=== PATIENT | female | born 1960 | race American Indian/Alaskan Native ===

== ENCOUNTER 2017-02-23 16:00 | Emergency (ER) | payer SELFPAY ==
[2017-02-23 18:00] LABS: Basophils % (Auto) 0.8 % (0.0-1.8); Eosinophils % (Auto) 3.4 % (0.0-4.3); Hematocrit 37.4 % (30.3-42.9); Hemoglobin 12.1 gm/dl (10.1-14.3); Mean Corpuscular HGB Conc 32 % (30-34); Mean Corpuscular Hemoglobin 29 pg (28-32); Mean Corpuscular Volume 91 fl (79-97); Platelet Count 282 K/mm3 (140-440); Red Blood Count 4.12 M/mm3 (3.65-5.03); Red Cell Distribution Width 14.3 % (13.2-15.2); White Blood Count 5.6 K/mm3 (4.5-11.0)
[2017-02-23 18:09] LABS: INR 1.02 (0.87-1.13); Partial Thromboplastin Time 29.9 Sec. (24.2-36.6)
[2017-02-23 18:19] LABS: Anion Gap 19 mmol/L; Blood Urea Nitrogen 12 mg/dL (7-17); Calcium 9.1 mg/dL (8.4-10.2); Carbon Dioxide 22 mmol/L (22-30); Chloride 102.4 mmol/L (98-107); Glucose 99 mg/dL (65-100); Potassium 3.3 mmol/L (3.6-5.0); Sodium 140 mmol/L (137-145)
[2017-02-23 23:47] VITALS: BP 142/80
[2017-02-24] MEDS ORDERED: LASIX PO ONE (01:16)
[2017-02-24] MEDS ORDERED: TORADOL IM ONE (01:16)
[2017-02-24] MEDS ORDERED: LOVENOX SUB-Q ONE (01:33)
--- NOTE | 2017-02-24 01:43 | Emergency Department Report ---
HPI - General Chief Complaint: Extremity Problem,Nontraumatic Time Seen by Provider: 02/24/17 00:16 - HPI HPI: The patient is a 56-year-old female presents for evaluation of left leg pain. The patient reports progressive left leg pain and swelling for the past 3 weeks , worse over the past one day, 5/10 in severity, throbbing in quality, exacerbated with weightbearing or ambulation. 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 The patient denies trauma to the left leg leg, fever , chills, night sweats, paresthesias, motor deficit, chest pain, dyspnea, abdominal pain or distention. ED Past Medical Hx - Past Medical History Additional medical history: HIATAL HERNIA - Surgical History Additional Surgical History: HYSTERECTOMY. TUBAL LIGATION. HEMORRHOIDECTOMY - Social History Smoking Status: Never Smoker Substance Use Type: Alcohol - Medications Home Medications: Home Medications Medication Instructions Recorded Confirmed Last Taken Type Cyclobenzaprine HCl [Flexeril 5mg] 5 mg PO Q6HR #15 tablet 03/17/15 02/24/17 Unknown Rx Tramadol HCl [traMADol] 50 mg PO Q8HR #20 tablet 03/17/15 02/24/17 Unknown Rx Acetaminophen/Codeine [Tylenol #3] 1 tab PO Q6H PRN #10 tab 02/24/17 Unknown Rx ED Review of Systems ROS: Stated complaint: LT LEG PAIN Other details as noted in HPI Constitutional: denies: fever ENT: denies: throat or neck pain Respiratory: denies: cough, shortness of breath Cardiovascular: denies: chest pain Endocrine: denies unexplained weight loss or gain Gastrointestinal: denies: abdominal pain, nausea Genitourinary: denies: dysuria Musculoskeletal: reports leg pain and leg swelling Skin: denies: rash Neurological: denies: headache Hematological/Lymphatic: denies: easy bleeding or easy bruising Psych: denies sadness or hopelessness Physical Exam - Physical Exam Vital Signs: Vital Signs 02/23/17 23:47 Pulse Rate 74 Respiratory 16 Rate Blood Pressure 142/80 [Left] O2 Sat by Pulse 95 Oximetry Physical Exam: General: well-nourished, well-developed, no acute distress Head: Normocephalic, atraumatic Eyes: normal sclera ENT: Mucous membranes are pink and moist Neck: trachea midline, neck supple, No neck stiffness, no cervical adenopathy Respiratory: Breath sounds equal bilaterally, no wheezing, rales, or rhonchi Cardio: S1 and S2 present, no murmurs, rubs, gallops, capillary refill is brisk Abdomen: Normoactive bowel sounds, soft abdomen, no tenderness Musc: Left lower extremity is swollen, left calf Muscle warm to touch, positive calf muscle tenderness to compression present, 1+ pitting edema to the left lower extremity, leg compartments are soft and pliable, no signs compartments syndrome Skin: No rash Neuro: no facial drooping, normal speech Psych: Normal affect ED Course Vital Signs 02/23/17 23:47 Pulse Rate 74 Respiratory 16 Rate Blood Pressure 142/80 [Left] O2 Sat by Pulse 95 Oximetry ED Medical Decision Making - Lab Data Result diagrams: 02/23/17 17:43 02/23/17 17:43 - Medical Decision Making The patient was seen and examined by myself. The patient is placed on a communications project lead and continuous pulse ox. On initial evaluation, the patient was found to be in no distress. Evaluation orders were placed. The patient is given IM dose of toradol for her pain and a tab of lasix. Lab results revealed elevated d-dimer and otherwise unrevealing. As patient has elevated d-dimer and exam findings probable for DVT, the patient will be treated prophylactically and scheduled for Doppler ultrasound of the left lower extremity in the a.m. The patient was reevaluated and reported that their symptoms were markedly improved. The patient is stable for discharge with outpatient follow-up. The patient is given follow-up and return instructions. The patient expressed understanding and agreed with the plan. The patient is discharged in stable condition. Critical care attestation.: If time is entered above; I have spent that time in minutes in the direct care of this critically ill patient, excluding procedure time. ED Disposition Clinical Impression: Leg pain, left, Pain and swelling of left lower extremity Left leg DVT Qualifiers: Affected thrombotic vein of extremity: unspecified vein of extremity Chronicity : acute Qualified Code(s): I82.402 - Acute embolism and thrombosis of unspecified deep veins of left lower extremity Disposition: DISCHARGED TO HOME OR SELFCARE Is pt being admited?: No Does the pt Need Aspirin: No Condition: Stable Instructions: Deep Venous Thrombosis (ED), Musculoskeletal Pain (ED) Additional Instructions: Make sure to present to the vascular lab here at [facility] first thing in the morning to receive US of your left leg, in order to investigate for suspected blood clot. Make sure to return to the ED for definitive treatment if your US in the morning is positive for a blood clot. Prescriptions: Acetaminophen/Codeine [Tylenol #3] 1 tab PO Q6H PRN #10 tab PRN Reason: Pain Referrals: PRIMARY CARE, [Primary Care Provider] - 3-5 Days Time of Disposition: 01:37
== END 2017-02-24 02:24 | disposition home or self-care (01) ==
LOC: ED 16:00
DX: I82.402 Acute embolism and thrombosis of unspecified deep veins of left lower extremity (principal); M79.89 Other specified soft tissue disorders; M79.605 Pain in left leg
CPT/HCPCS: 36415; 80048; 85025; 85379; 85610; 85730; 96372; 99284; J1650; J1885

== ENCOUNTER 2017-02-24 09:24 | Outpatient (CLI) | payer SELFPAY ==
--- NOTE | 2017-02-25 09:42 | Vascular Lab Report ---
Left Lower Extremity Venous Duplex Study: Reason for Exam: Pain and swelling of the left lower extremity. Comments on the Right: A limited duplex study was done of the proximal veins of the right lower extremity. All veins visualized are freely compressible without evidence of internal echogenicity. Flow is spontaneous and phasic throughout. No evidence of acute or chronic thrombus is seen in any of the vessels visualized. Comments on the Left: All veins visualized are freely compressible without evidence of internal echogenicity. Flow is spontaneous and phasic throughout. No evidence of acute or chronic thrombus is seen in any of the vessels visualized. There are soft tissue change in the left knee area most compatible with a Zhao's cyst, possibly ruptured. Impression: No evidence of acute or chronic deep venous thrombosis in the left lower extremity.
== END 2017-02-24 09:25 | disposition home or self-care (01) ==
LOC: VAS 09:24
PROVIDERS: ATTEND Emergency Medicine
DX: M79.605 Pain in left leg (principal); M79.89 Other specified soft tissue disorders

== ENCOUNTER 2017-09-24 05:49 | Emergency (ER) | payer OTHER ==
--- NOTE | 2017-09-24 07:00 | XRay Report ---
FINAL REPORT EXAM: XR CHEST ROUTINE 2V HISTORY: Cough. TECHNIQUE: Frontal and lateral radiographs of the chest were obtained. No prior studies are available for comparison. FINDINGS: The cardiac silhouette and mediastinum are within normal limits. The lungs are clear bilaterally, without focal infiltrate or effusion. There is no pneumothorax. No significant osseous abnormalities are identified. IMPRESSION: No active disease seen in the chest.
[2017-09-24 09:16] LABS: Basophils % (Auto) 0.5 % (0.0-1.8); Eosinophils % (Auto) 0.1 % (0.0-4.3); Hematocrit 39.8 % (30.3-42.9); Hemoglobin 13.1 gm/dl (10.1-14.3); Lymphocytes # (Auto) 0.6 K/mm3 (1.2-5.4); Lymphocytes % (Auto) 10.5 % (13.4-35.0); Mean Corpuscular HGB Conc 33 % (30-34); Mean Corpuscular Hemoglobin 31 pg (28-32); Mean Corpuscular Volume 93 fl (79-97); Monocytes # (Auto) 0.3 K/mm3 (0.0-0.8); Monocytes % (Auto) 5.9 % (0.0-7.3); Platelet Count 231 K/mm3 (140-440); Red Blood Count 4.28 M/mm3 (3.65-5.03); Red Cell Distribution Width 14.5 % (13.2-15.2)
[2017-09-24 09:30] LABS: Alanine Aminotransferase 59 units/L (7-56); Albumin 4.4 g/dL (3.9-5); BUN/Creatinine Ratio 12; Blood Urea Nitrogen 11 mg/dL (7-17); Calcium 9.5 mg/dL (8.4-10.2); Hemolysis Index 9
[2017-09-24] MEDS ORDERED: NACL 0.9% 1000 ML 1,000 ML IV ONE (14:01)
[2017-09-24] MEDS ORDERED: DUONEB *Not for PRN Use IH ONE (14:01)
[2017-09-24] MEDS ORDERED: TESSALON PERLES PO ONE (14:02)
--- NOTE | 2017-09-24 14:08 | Emergency Department Report ---
ED General Adult HPI - General Chief complaint: Upper Respiratory Infection Stated complaint: FLU SX Time Seen by Provider: 09/24/17 13:16 Source: patient Mode of arrival: Ambulatory Limitations: No Limitations - History of Present Illness Initial comments: PT c/o being sick since Wednesday night. PT states she has ear pain, facial pain, cough, sore throat, body aches and chest pain with coughing. PT states she has been nauseated. PT states symptoms improved last night after drinking vinegar. PT states she vomited this am. Pt states she has been taking Tylenol for her symptoms and she gets mild relief. Last dose was last night. Pt states she recently went to a work meeting and "everyone was sick" MD Complaint: Flu symptoms Onset/Timin -: Gradual Location: head, mouth, chest, back Severity scale (0 -10): 8 Quality: aching Consistency: constant Improves with: medication Worsens with: other (coughing ) Associated Symptoms: fever/chills, headaches, loss of appetite, nausea/ vomiting. denies: shortness of breath Treatments Prior to Arrival: none - Related Data Previous Rx's Medication Instructions Recorded Last Taken Type Benzonatate [Tessalon Perles] 100 mg PO Q8HR PRN #12 capsule 09/24/17 Unknown Rx Ibuprofen [Motrin] 600 mg PO Q8H PRN #20 tablet 09/24/17 Unknown Rx Ondansetron [Zofran Odt] 4 mg PO Q8HR PRN #10 tab.rapdis 09/24/17 Unknown Rx Sulfamethoxazole/Trimethoprim 1 each PO BID #14 tablet 09/24/17 Unknown Rx [Bactrim DS TAB] Allergies Allergy/AdvReac Type Severity Reaction Status Date / Time Penicillins Allergy Anaphylaxis Verified 03/17/15 16:58 ED Review of Systems ROS: Stated complaint: FLU SX Other details as noted in HPI Comment: All other systems reviewed and negative Constitutional: chills, fever, malaise ENT: ear pain, throat pain, congestion Respiratory: cough. denies: shortness of breath, SOB with exertion, SOB at rest Cardiovascular: chest pain (hurts to cough). denies: palpitations, dyspnea on exertion, orthopnea, edema, syncope Endocrine: increased urine Gastrointestinal: nausea, vomiting. denies: abdominal pain Genitourinary: frequency, other (pt states her urine has been darker than normal and she has noticed an odor to her urine). denies: dysuria Musculoskeletal: myalgia Neurological: headache. denies: weakness, confusion, abnormal gait, vertigo ED Past Medical Hx - Past Medical History Previous Medical History?: No Hx Hypertension: No Hx CVA: No Hx Heart Attack/AMI: No Hx Congestive Heart Failure: No Hx Diabetes: No Additional medical history: HIATAL HERNIA - Surgical History Past Surgical History?: Yes Additional Surgical History: HYSTERECTOMY. TUBAL LIGATION. HEMORRHOIDECTOMY - Social History Smoking Status: Never Smoker Substance Use Type: None - Medications Home Medications: Home Medications Medication Instructions Recorded Confirmed Last Taken Type Benzonatate [Tessalon Perles] 100 mg PO Q8HR PRN #12 capsule 09/24/17 Unknown Rx Ibuprofen [Motrin] 600 mg PO Q8H PRN #20 tablet 09/24/17 Unknown Rx Ondansetron [Zofran Odt] 4 mg PO Q8HR PRN #10 tab.rapdis 09/24/17 Unknown Rx Sulfamethoxazole/Trimethoprim 1 each PO BID #14 tablet 09/24/17 Unknown Rx [Bactrim DS TAB] ED Physical Exam - General Limitations: No Limitations General appearance: alert, in no apparent distress - Head Head exam: Present: atraumatic, normocephalic, normal inspection - Eye Eye exam: Present: normal appearance, PERRL, EOMI. Absent: conjunctival injection, nystagmus - ENT ENT exam: Present: normal exam, normal orophraynx, mucous membranes moist, TM's normal bilaterally, normal external ear exam - Neck Neck exam: Present: normal inspection, full ROM. Absent: lymphadenopathy - Respiratory Respiratory exam: Present: respiratory distress, decreased breath sounds. Absent: normal lung sounds bilaterally - Cardiovascular Cardiovascular Exam: Present: regular rate, normal rhythm, normal heart sounds - GI/Abdominal GI/Abdominal exam: Present: soft, normal bowel sounds. Absent: tenderness - Extremities Exam Extremities exam: Present: normal inspection, full ROM - Back Exam Back exam: Present: normal inspection, full ROM. Absent: tenderness, CVA tenderness (R), CVA tenderness (L) - Neurological Exam Neurological exam: Present: alert, oriented X3 - Psychiatric Psychiatric exam: Present: normal affect, normal mood - Skin Skin exam: Present: warm, normal color ED Course Vital Signs 09/24/17 09/24/17 09/24/17 05:56 13:32 16:02 Temperature 100.5 F H 98.0 F Pulse Rate 110 H 79 Pulse Rate [ 105 H Bilateral Upper Lobe] Respiratory 16 Rate Respiratory 18 Rate [Bilateral Upper Lobe] Blood Pressure 134/87 Blood Pressure 135/67 [Left] O2 Sat by Pulse 99 100 Oximetry 09/24/17 09/24/17 16:08 16:22 Temperature 98.8 F Pulse Rate 85 Pulse Rate [ 102 H Bilateral Upper Lobe] Respiratory 20 Rate Respiratory 20 Rate [Bilateral Upper Lobe] Blood Pressure Blood Pressure 115/66 [Left] O2 Sat by Pulse 94 Oximetry - Reevaluation(s) Reevaluation #1: 09/24/17 14:13 PT aware of plan of care. Reevaluation #2: 09/24/17 17:17 PT states she is feeling better. PT aware of results. PT's chest pain is described as discomfort coughing, negative troponin and EKGis NSR. PT is stable to outpt follow up. PT aware she may need further testing that can be ordered by PCP or cardio. Pt has no questions at this time. - Pulse Oximetry Interpretation Digit-Finger Initial Pulse Oximetry Readin Actions Taken: none ED Medical Decision Making - Lab Data Result diagrams: 09/24/17 08:52 09/24/17 08:52 Laboratory Results - last 24 hr 09/24/17 09/24/17 09/24/17 08:52 08:52 14:10 WBC 5.4 RBC 4.28 Hgb 13.1 Hct 39.8 MCV 93 MCH 31 MCHC 33 RDW 14.5 Plt Count 231 Lymph % (Auto) 10.5 L Phillips % (Auto) 5.9 Eos % (Auto) 0.1 Baso % (Auto) 0.5 Lymph # 0.6 L Phillips # 0.3 Eos # 0.0 Baso # 0.0 Seg Neutrophils % 83.0 H Seg Neutrophils # 4.5 Sodium 138 Potassium 4.4 Chloride 97.2 L Carbon Dioxide 22 Anion Gap 23 BUN 11 Creatinine 0.9 Estimated GFR > 60 BUN/Creatinine Ratio 12 Glucose 144 H Calcium 9.5 Total Bilirubin 0.20 AST 53 H ALT 59 H Alkaline Phosphatase 101 Total Creatine Kinase 182 H Troponin T < 0.010 Total Protein 8.3 H Albumin 4.4 Albumin/Globulin Ratio 1.1 Lipase 18 Urine Color Urine Turbidity Urine pH Ur Specific [place] Urine Protein Urine Glucose (UA) Urine Ketones Urine Blood Urine Nitrite Urine Bilirubin Urine Urobilinogen Ur Leukocyte Esterase Urine WBC (Auto) Urine RBC (Auto) Urine Bacteria (Auto) Urine Mucus 09/24/17 14:30 WBC RBC Hgb Hct MCV MCH MCHC RDW Plt Count Lymph % (Auto) Phillips % (Auto) Eos % (Auto) Baso % (Auto) Lymph # Phillips # Eos # Baso # Seg Neutrophils % Seg Neutrophils # Sodium Potassium Chloride Carbon Dioxide Anion Gap BUN Creatinine Estimated GFR BUN/Creatinine Ratio Glucose Calcium Total Bilirubin AST ALT Alkaline Phosphatase Total Creatine Kinase Troponin T Total Protein Albumin Albumin/Globulin Ratio Lipase Urine Color Yellow Urine Turbidity Clear Urine pH 5.0 Ur Specific [place] 1.012 Urine Protein <15 mg/dl Urine Glucose (UA) Neg Urine Ketones Neg Urine Blood Mod Urine Nitrite Neg Urine Bilirubin Neg Urine Urobilinogen < 2.0 Ur Leukocyte Esterase Neg Urine WBC (Auto) 2.0 Urine RBC (Auto) 3.0 Urine Bacteria (Auto) 1+ Urine Mucus 1+ - EKG Data -: EKG Interpreted by [facility] EKG shows normal: sinus rhythm Rate: normal (83) - EKG Data When compared to previous EKG there are: no significant change (previous EKG reviewed in [facility] dated 11-19-15) Interpretation: no acute changes - Radiology Data Radiology results: report reviewed CXR - NAP - Medical Decision Making PT with two days of c/c/c and urinary frequency. UA suggestive of mild UTI. PT reports pain with coughing, denies worsening of pain with inspiration. Pt's heart score is 2. She is safe for outpt follow up. - Differential Diagnosis pna, bronchitis, uti, costocondritis, dehyration Critical Care Time: No Critical care attestation.: If time is entered above; I have spent that time in minutes in the direct care of this critically ill patient, excluding procedure time. ED Disposition Clinical Impression: Viral URI with cough, Elevated LFTs UTI (urinary tract infection) Qualifiers: Urinary tract infection type: acute cystitis Hematuria presence: with hematuria Qualified Code(s): N30.01 - Acute cystitis with hematuria Disposition: TO HOME OR SELFCARE Is pt being admited?: No Does the pt Need Aspirin: No Condition: Stable Instructions: Urinary Tract Infection in Women (ED), Cold Symptoms (ED) Additional Instructions: Rest Increase fluids avoid Tylenol containing products Follow up with PCP in 3-5 days return to ED if worsening symptoms or concerns Prescriptions: Benzonatate [Tessalon Perles] 100 mg PO Q8HR PRN #12 capsule PRN Reason: Cough Ibuprofen [Motrin] 600 mg PO Q8H PRN #20 tablet PRN Reason: Pain Ondansetron [Zofran Odt] 4 mg PO Q8HR PRN #10 tab.rapdis PRN Reason: Nausea Sulfamethoxazole/Trimethoprim [Bactrim DS TAB] 1 each PO BID #14 tablet Referrals: PRIMARY CAREMD [Primary Care Provider] - 3-5 Days TEDDY HOUSER MD [Staff Physician] - 3-5 Days Forms: Work/School Release Form(ED) Time of Disposition: 17:25
[2017-09-24] MEDS ORDERED: MOTRIN PO ONE (14:10)
[2017-09-24] MEDS ORDERED: ZOFRAN IV ONE (14:10)
[2017-09-24 14:46] LABS: Lipase 18 units/L (13-60)
[2017-09-24 15:02] LABS: Bacteria,Urine 1+ /HPF (Negative); Bilirubin,Urine NEG (Negative); Blood,Urine MOD (Negative); Color,Urine Yellow (Yellow); Mucus,Urine 1+ /HPF; Nitrite,Urine NEG (Negative); Protein,Urine <15 mg/dL mg/dL (Negative); Urobilinogen,Urine < 2.0 mg/dL (<2.0)
[2017-09-24 16:23] VITALS: BP 115/66
== END 2017-09-24 17:41 | disposition home or self-care (01) ==
LOC: ED 05:49
DX: J02.9 Acute pharyngitis, unspecified (principal); J06.9 Acute upper respiratory infection, unspecified; N30.01 Acute cystitis with hematuria; R94.5 Abnormal results of liver function studies; Z88.0 Allergy status to penicillin
CPT/HCPCS: 36415; 71020; 80053; 81001; 82550; 83690; 84484; 85025; 87086; 87400; 93005; 93010; 94640; 96361; 96374; 99284; J2405; J7030

== ENCOUNTER 2019-08-28 09:40 | Emergency (ER) | payer SELFPAY ==
[2019-08-28 09:51] VITALS: BP 164/85
[2019-08-28] MEDS ORDERED: dexAMETHasone 20 MG/5 ML VIAL IV ONE (11:14)
--- NOTE | 2019-08-28 11:19 | Emergency Department Report ---
- General Chief complaint: Urogenital-Female Stated complaint: REACTION FROM MEDS Time Seen by Provider: 08/28/19 11:13 Source: patient Mode of arrival: Ambulatory Limitations: No Limitations - History of Present Illness Initial comments: 58-year-old female presents to the emergency room complaining of vaginal swelling, mild tongue swelling and mild lip swelling since this morning. Patient states that she had seen her FEED PREPARATION OPERATOR provider and they had given her Diflucan which she had reported to them that she had an allergic reaction. Patient took the medication and woke up this morning with swelling and allergic reaction. Patient is seen by [facility]ED PREPARATION OPERATOR in [place]. She states that she has had this reaction 3 times in the last 12 years. Patient states she usually has to come in and get a steroid injection. Patient denies taking any medication prior to arrival. Patient denies any shortness of breathing chest pain abdominal pain no nausea no vomiting. MD complaint: rash -: This morning Tetanus Up to Date: yes Location: face, genitals Severity: mild Quality: other (tingling) Consistency: constant Improves with: none Worsens with: none Associated symptoms: denies other symptoms Treatments Prior to Arrival: none - Related Data Previous Rx's Medication Instructions Recorded Last Taken Type Benzonatate [Tessalon Perles] 100 mg PO Q8HR PRN #12 capsule 09/24/17 Unknown Rx Ibuprofen [Motrin] 600 mg PO Q8H PRN #20 tablet 09/24/17 Unknown Rx Ondansetron [Zofran Odt] 4 mg PO Q8HR PRN #10 tab.rapdis 09/24/17 Unknown Rx Sulfamethoxazole/Trimethoprim 1 each PO BID #14 tablet 09/24/17 Unknown Rx [Bactrim DS TAB] Allergies Allergy/AdvReac Type Severity Reaction Status Date / Time Penicillins Allergy Anaphylaxis Verified 03/17/15 16:58 Abscess Boil HPI - HPI Chief Complaint: Urogenital-Female Stated Complaint: REACTION FROM MEDS Time Seen by Provider: 08/28/19 11:13 Home Medications: Previous Rx's Medication Instructions Recorded Last Taken Type Benzonatate [Tessalon Perles] 100 mg PO Q8HR PRN #12 capsule 09/24/17 Unknown Rx Ibuprofen [Motrin] 600 mg PO Q8H PRN #20 tablet 09/24/17 Unknown Rx Ondansetron [Zofran Odt] 4 mg PO Q8HR PRN #10 tab.rapdis 09/24/17 Unknown Rx Sulfamethoxazole/Trimethoprim 1 each PO BID #14 tablet 09/24/17 Unknown Rx [Bactrim DS TAB] Allergies/Adverse Reactions: Allergies Allergy/AdvReac Type Severity Reaction Status Date / Time Penicillins Allergy Anaphylaxis Verified 03/17/15 16:58 ED Review of Systems ROS: Stated complaint: REACTION FROM MEDS Other details as noted in HPI Comment: All other systems reviewed and negative ED Past Medical Hx - Past Medical History Previous Medical History?: Yes Hx Hypertension: No Hx CVA: No Hx Heart Attack/AMI: No Hx Congestive Heart Failure: No Hx Diabetes: No Additional medical history: HIATAL HERNIA - Surgical History Past Surgical History?: Yes Additional Surgical History: HYSTERECTOMY. TUBAL LIGATION. HEMORRHOIDECTOMY - Social History Smoking Status: Never Smoker Substance Use Type: None - Medications Home Medications: Home Medications Medication Instructions Recorded Confirmed Last Taken Type Benzonatate [Tessalon Perles] 100 mg PO Q8HR PRN #12 capsule 09/24/17 Unknown Rx Ibuprofen [Motrin] 600 mg PO Q8H PRN #20 tablet 09/24/17 Unknown Rx Ondansetron [Zofran Odt] 4 mg PO Q8HR PRN #10 tab.rapdis 09/24/17 Unknown Rx Sulfamethoxazole/Trimethoprim 1 each PO BID #14 tablet 09/24/17 Unknown Rx [Bactrim DS TAB] ED Physical Exam - General Limitations: No Limitations General appearance: alert, in no apparent distress - Head Head exam: Present: atraumatic, normocephalic - Eye Eye exam: Present: normal appearance - ENT ENT exam: Present: mucous membranes moist - Neck Neck exam: Present: normal inspection - Neurological Exam Neurological exam: Present: alert, oriented X3 - Psychiatric Psychiatric exam: Present: normal affect, normal mood - Skin Skin exam: Present: warm, dry, intact ED Course Vital Signs 08/28/19 08/28/19 09:50 10:20 Temperature 97.8 F Pulse Rate 71 Respiratory 16 Rate Blood Pressure 164/85 [Right] O2 Sat by Pulse 100 100 Oximetry ED Medical Decision Making - Medical Decision Making 58-year-old female presents to the emergency room complaining of vaginal swelling, mild tongue swelling and mild lip swelling since this morning. Patient states that she had seen her FEED PREPARATION OPERATOR provider and they had given her Diflucan which she had reported to them that she had an allergic reaction. Patient took the medication and woke up this morning with swelling and allergic reaction. Patient is seen by [facility]ED PREPARATION OPERATOR in [place]. She states that she has had this reaction 3 times in the last 12 years. Patient states she usually has to come in and get a steroid injection. Patient denies taking any medication prior to arrival. Patient denies any shortness of breathing chest pain abdominal pain no nausea no vomiting. Patient is driving. Patient be given a shot of dexamethasone 10 mg IM. Patient is instructed to take Benadryl when she gets home of 25 mg every 6-8 hours as needed. Patient is instructed to discontinue Diflucan medication. Critical care attestation.: If time is entered above; I have spent that time in minutes in the direct care of this critically ill patient, excluding procedure time. ED Disposition Clinical Impression: Allergic reaction caused by a drug Disposition: DC-01 TO HOME OR SELFCARE Is pt being admited?: No Does the pt Need Aspirin: No Condition: Stable Instructions: Urticaria (ED) Additional Instructions: Take [id number] Benadryl every 6-8 hours as needed. Discontinue Diflucan. Follow up with her FEED PREPARATION OPERATOR. Referrals: your,community fundraiser [Other] - 3-5 Days Forms: Work/School Release Form(ED)
[2019-08-28] MEDS ORDERED: dexAMETHasone 20 MG/5 ML VIAL IM ONE (11:24)
== END 2019-08-28 12:09 | disposition home or self-care (01) ==
LOC: ED 09:40
DX: T37.8X1A Poisoning by other specified systemic anti-infectives and antiparasitics, accidental (unintentional), initial encounter (principal); Z90.710 Acquired absence of both cervix and uterus; Z98.51 Tubal ligation status; Z79.899 Other long term (current) drug therapy; Z88.0 Allergy status to penicillin; Y92.89 Other specified places as the place of occurrence of the external cause
CPT/HCPCS: 96372; 99282; J1100

== ENCOUNTER 2021-01-28 01:40 | Emergency (ER) | payer SELFPAY | END 2021-01-28 03:00 | disposition left against medical advice (07) | LOC: ED 01:40 | DX: Z53.21 Procedure and treatment not carried out due to patient leaving prior to being seen by health care provider (principal) ==